=== PATIENT | female | born 1995 | race Hispanic/Latino ===

== ENCOUNTER 2024-02-20 16:41 | Emergency (ER) | payer OTHER ==
[~2024-02-20] VITALS: Ht 154.9 cm; Wt 60.7 kg
[2024-02-20] VITALS (8 sets, daily range): BP systolic 103–120; BP diastolic 63–90
[2024-02-20 17:49] LABS: BASO% 0.2 % (0-3); EOS% 0.5 % (0-8); HEMATOCRIT 38.4 % (37.0-47.0); HEMOGLOBIN 12.9 g/dl (12.0-16.0); IMMATURE GRANULOCYTES 0.1 % (0.0-5.0); MEAN CELL VOLUME 85.3 fL CALC (80.0-100.0); MEAN CORPUSCULAR HGB 28.7 pG CALC (26.0-32.0); MEAN CORPUSCULAR HGB CONC 33.6 g/dL CAL (32.0-36.0); MONO% 6.8 % (2-13); NEUT# 6.21 thou/uL (2.00-7.15); NEUT% 72.4 % (42-76); RED BLOOD COUNT 4.5 mill/uL (4.20-5.60); RED CELL DISTRI WIDTH 13.5 % (11.5-15.5)
[2024-02-20 18:02] LABS: ALBUMIN 4.6 g/dL (3.2-5.0); CREATININE 0.4 mg/dL (0.5-1.0); POTASSIUM 3.6 mmol/l (3.5-5.1); TOTAL PROTEIN 8.4 g/dL (6.3-8.2)
[2024-02-20 18:03] LABS: BILIRUBIN, TOTAL 0.4 mg/dL (0.02-1.3)
== END 2024-02-20 19:49 | disposition home or self-care (01) ==
LOC: ED 16:41
PROVIDERS: Family Medicine
DX: O20.8 Other hemorrhage in early pregnancy (principal); Z3A.13 13 weeks gestation of pregnancy